=== PATIENT | female | born 1975 | race African-American/Black ===

== ENCOUNTER 2016-10-21 03:20 | Emergency (ER) | payer OTHER ==
[~2016-10-21] VITALS: Ht 165.1 cm; Wt 95.0 kg
[~2016-10-21 03:20] MED LIST: PHEN100 PO
[2016-10-21] MEDS ORDERED: PHEN100C PO (03:25)
[2016-10-21 03:26] VITALS: BP 126/73; PULSE 77; RESP 18; TEMP 97.9
[2016-10-21 03:33] VITALS: BP 126/73; PULSE 84; RESP 20; O2SAT 100
[2016-10-21] MEDS ORDERED: SODIUM CHLORIDE 0.9% FLUSH 5 ML FLUSH IVF PRN (03:45)
[2016-10-21 04:37] LABS: ALKALINE PHOSPHATASE 85 U/L (45-117); TOTAL BILIRUBIN ADULT 0.3 MG/DL (0.2-1.0)
[2016-10-21 04:39] LABS: ALT (GPT) 51 U/L (10-53); ANION GAP 8 MEQ/L (5-15); AST (GOT) 42 U/L (15-37); BICARBONATE 25.4 MEQ/L (21.0-32.0); BLOOD UREA NITROGEN 8 MG/DL (7-18); CHLORIDE 103 MEQ/L (98-107); GLOMERULAR FILTRATION RATE 88 ML/MIN (>89); POTASSIUM 4.7 MEQ/L (3.5-5.1); SODIUM (NA) 136 MEQ/L (136-145)
[2016-10-21] MEDS ORDERED: LORazepam 2 MG/ML VIAL ONE (04:51)
[2016-10-21] MEDS ORDERED: LORazepam 2 MG/ML VIAL IVS ONE (04:52)
[2016-10-21 04:59] VITALS: BP 133/62; PULSE 100; RESP 16; O2SAT 100
[2016-10-21 05:17] VITALS: BP 156/98; PULSE 98; RESP 16; O2SAT 96
[2016-10-21] MEDS ORDERED: LORazepam 2 MG/ML VIAL IV ONE (06:00)
--- NOTE | 2016-10-21 06:02 | PD ---
HPI Chief Complaint: Seizure Time Seen by Provider: 03:39 Travel History International Travel<30 days: No Contact w/Intl Traveler<30days: No Traveled to known affect area: No History of Present Illness HPI Patient is a 41-year-old female with a history of seizure disorder presents emergency department for evaluation of recurrent seizure. On arrival patient is fairly disgruntled and states that she wants to go home. When asked what happened she states that think I had a seizure again. She does not remember the exact events that led up to her being transported by EMS. Patient states she takes phenytoin and has been faithful to her medication regimen. She states she has not had a seizure since last month. She states occasionally she does have seizures to a time. She follows with patient assistance clinic here. No fevers no chest pain no headache. PFSH Past Medical History Arthritis: No Asthma: No Autoimmune Disease: No Blood Disorders: No Anxiety: No Depression: No Heart Rhythm Problems: No Cancer: No Cardiovascular Problems: No High Cholesterol: No Chemotherapy: No Chest Pain: No Congestive Heart Failure: No COPD: No Cerebrovascular Accident: No Diabetes: No Diminished Hearing: No Endocrine: No GERD: No Glaucoma: No Genitourinary: No Headaches: No Hepatitis: No Hiatal Hernia: No Hypertension: No Immune Disorder: No Kidney Stones: No Musculoskeletal: No Neurologic: Yes Psychiatric: No Reproductive: No Respiratory: No Migraines: No Myocardial Infarction: No Radiation Therapy: No Renal Failure: No Seizures: Yes Sickle Cell Disease: No Sleep Apnea: No Thyroid Disease: No Ulcer: No PNEUMOCCOCAL Vaccine (Year): 2 ?: Not : 2 Para: 2 Miscarriage: 0 : 0 Tubal Ligation: Yes Past Surgical History Abdominal Surgery: No AICD: No Appendectomy: No Arteriovenous Shunt: No Cardiac Surgery: No Cholecystectomy: No Ear Surgery: No Endocrine Surgery: No Eye Surgery: No Genitourinary Surgery: No Gynecologic Surgery: Yes ( TUBAL LIGATION) Hysterectomy: Yes Insulin Pump: No Joint Replacement: No Neurologic Surgery: No Oral Surgery: No Pacemaker: No Thoracic Surgery: No Other Surgery: Yes Social History Alcohol Use: No Tobacco Use: No Substance Use: No Allergies-Medications (Allergen,Severity, Reaction): Coded Allergies: No Known Allergies (Verified , 10/21/16) Reported Meds & Prescriptions Reported Meds & Active Scripts Active Reported Phenytoin Extended 100 Mg Cap 300 Mg PO TID Review of Systems Except as stated in HPI: all other systems reviewed are Neg Physical Exam Narrative GENERAL: Well-developed well-nourished in no apparent distress. SKIN: Warm and dry. HEAD: Atraumatic. Normocephalic. EYES: Pupils equal and round. No scleral icterus. No injection or drainage. ENT: No nasal bleeding or discharge. Mucous membranes pink and moist. No tongue laceration. NECK: Trachea midline. No JVD. CARDIOVASCULAR: Regular rate and rhythm. No murmur appreciated. RESPIRATORY: No accessory muscle use. Clear to auscultation. Breath sounds equal bilaterally. GASTROINTESTINAL: Abdomen soft, non-tender, nondistended. Hepatic and splenic margins not palpable. MUSCULOSKELETAL: No obvious deformities. No clubbing. No cyanosis. No edema. NEUROLOGICAL: Awake and alert. Cranial nerves II through XII are grossly intact nonfocal, 5 out of 5 strength in all 4 extremities. PSYCHIATRIC: Appropriate mood and affect; insight and judgment normal. Data Data Last Documented VS Vital Signs Date Time Temp Pulse Resp B/P Pulse Ox O2 Delivery O2 Flow Rate FiO2 10/21/16 06:14 80 18 140/67 100 Nasal Cannula 3 10/21/16 03:26 97.9 Orders Basic Metabolic Panel (Bmp) (10/21/16 03:39) Phenytoin (Dilantin) (10/21/16 03:39) Blood Glucose (10/21/16 03:39) Ecg Monitoring (10/21/16 03:39) Iv Access Insert/Monitor (10/21/16 03:39) Oximetry (10/21/16 03:39) Comprehensive Metabolic Panel (10/21/16 03:39) Sodium Chloride 0.9% Flush (Ns Flush) (10/21/16 03:45) Lorazepam Inj (Ativan Inj) (10/21/16 04:51) Lorazepam Inj (Ativan Inj) (10/21/16 04:52) Labs Laboratory Tests Test 10/21/16 03:56 Sodium Level 136 MEQ/L Potassium Level 4.7 MEQ/L Chloride Level 103 MEQ/L Carbon Dioxide Level 25.4 MEQ/L Anion Gap 8 MEQ/L Blood Urea Nitrogen 8 MG/DL Creatinine 0.85 MG/DL Estimat Glomerular Filtration 88 ML/MIN Rate Random Glucose 82 MG/DL Calcium Level 8.3 MG/DL Total Bilirubin 0.3 MG/DL Aspartate Amino Transf 42 U/L (AST/SGOT) Alanine Aminotransferase 51 U/L (ALT/SGPT) Alkaline Phosphatase 85 U/L Total Protein 7.7 GM/DL Albumin 3.4 GM/DL Phenytoin (Dilantin) Level 13.8 MCG/ML MDM Medical Decision Making Medical Screen Exam Complete: Yes Emergency Medical Condition: Yes Differential Diagnosis Recurrent seizure, electrolyte abnormality, medication subtherapeutic level. Narrative Course Patient was roomed in emergency department, she appears well on arrival. While waiting for her labs returned patient did have a generalized tonic-clonic seizure lasting only for about 45 seconds. She was given Ativan 1 mg IV. Dilantin level returned subtherapeutic. The rest are her lab work is reassuring. Discussed with the patient that at this point she is not in status epilepticus and her levels are therapeutic. Patient states is not out of the ordinary for her to have an additional seizure. Discussed with her need follow- up with her primary care physician and consider a neurology consult and I have placed a referral. Patient is agreeable and would like to go home. Discussed first aid for seizures and returned ED criteria. Diagnosis Primary Impression: Recurrent seizures Referrals: Ramiro Vora MD Disposition: 01 DISCHARGE HOME Condition: Stable gJ Mason MD Oct 21, 2016 06:02
[2016-10-21 06:14] VITALS: BP 140/67
[2016-11-28] MEDS ORDERED: PHEN100C PO (13:01)
[2017-01-14] MEDS ORDERED: PHEN100C PO (10:05)
[2017-02-14] MEDS ORDERED: HYDR12.56 PO (11:18)
== END 2016-10-21 06:44 | disposition home or self-care (01) ==
LOC: NEPE 03:20
DX: G40.909 Epilepsy, unspecified, not intractable, without status epilepticus (principal)
CPT/HCPCS: 80053; 80185; 96374; 99284; J2060

== ENCOUNTER 2016-12-19 13:25 | Emergency (ER) | payer OTHER ==
[~2016-12-19] VITALS: Ht 165.1 cm; Wt 80.0 kg
[~2016-12-19 13:25] MED LIST changes: -PHEN100 PO; +PHEN100C PO
[2016-12-19 13:28] VITALS: BP 153/92; PULSE 80; RESP 22; TEMP 98.5; O2SAT 100
[2016-12-19 13:35] VITALS: RESP 16; O2SAT 98
[2016-12-19] MEDS ORDERED: SODIUM CHLORIDE 0.9% FLUSH 10 ML FLUSH IVF PRN (13:45)
[2016-12-19] MEDS ORDERED: LORazepam 2 MG/ML VIAL IV PUSH ONE (13:45)
--- NOTE | 2016-12-19 13:50 | PD ---
HPI Chief Complaint: Seizure Time Seen by Provider: 13:46 Travel History International Travel<30 days: No Contact w/Intl Traveler<30days: No Traveled to known affect area: No History of Present Illness HPI 41-year-old female with a history of seizure disorder presents to the ED for evaluation of possible seizure. Per patient she possibly had a seizure about an hour ago. He shouldn't exam appears to be very anxious and distraught. Per patient she's had a history of seizures since 2007. She's been here multiple times for seizures in the past. Per patient she unfortunately does not have follow-up and she states that she's been out of her medication. Patient comes here with a ball up and he tilling which per patient she's been out of and she did not take any of the medications today. She denies any headache. No head injury. Per patient she has grand mal seizures. Patient was seen here at the beginning of the year and was seen for something similar. Patient was discharged with instructions to follow with neurology as well as PCP. Patient unclear if she has been following but it appears that she has not. She denies any other symptom. She does not really remember what happened as she usually lost his consciousness when she has a seizure. Nobody was there to see her. She denies any other medical problems. PFSH Past Medical History Arthritis: No Asthma: No Autoimmune Disease: No Blood Disorders: No Anxiety: No Depression: No Heart Rhythm Problems: No Cancer: No Cardiovascular Problems: No High Cholesterol: No Chemotherapy: No Chest Pain: No Congestive Heart Failure: No COPD: No Cerebrovascular Accident: No Diabetes: No Diminished Hearing: No Endocrine: No GERD: No Glaucoma: No Genitourinary: No Headaches: No Hepatitis: No Hiatal Hernia: No Hypertension: No Immune Disorder: No Kidney Stones: No Musculoskeletal: No Neurologic: Yes Psychiatric: No Reproductive: No Respiratory: No Migraines: No Myocardial Infarction: No Radiation Therapy: No Renal Failure: No Seizures: Yes Sickle Cell Disease: No Sleep Apnea: No Thyroid Disease: No Ulcer: No PNEUMOCCOCAL Vaccine (Year): 2 LMP: 12/19/16 : 2 Para: 2 Miscarriage: 0 : 0 Tubal Ligation: Yes Past Surgical History Abdominal Surgery: No AICD: No Appendectomy: No Arteriovenous Shunt: No Cardiac Surgery: No Cholecystectomy: No Ear Surgery: No Endocrine Surgery: No Eye Surgery: No Genitourinary Surgery: No Gynecologic Surgery: Yes ( TUBAL LIGATION) Hysterectomy: Yes Insulin Pump: No Joint Replacement: No Neurologic Surgery: No Oral Surgery: No Pacemaker: No Thoracic Surgery: No Other Surgery: Yes Social History Alcohol Use: No Tobacco Use: No Substance Use: No Allergies-Medications (Allergen,Severity, Reaction): Coded Allergies: No Known Allergies (Verified , 12/19/16) Reported Meds & Prescriptions Reported Meds & Active Scripts Active Phenytoin Extended 100 Mg Cap 300 Mg PO TID Review of Systems Except as stated in HPI: all other systems reviewed are Neg Physical Exam Narrative GENERAL: SKIN: Warm and dry. HEAD: Atraumatic. Normocephalic. EYES: Pupils equal and round. No scleral icterus. No injection or drainage. ENT: No nasal bleeding or discharge. Mucous membranes pink and moist. Tongue is midline. No uvula deviation. NECK: Trachea midline. No JVD. CARDIOVASCULAR: Regular rate and rhythm. No murmurs, S3, S4. RESPIRATORY: No accessory muscle use. Clear to auscultation. Breath sounds equal bilaterally. GASTROINTESTINAL: Abdomen soft, non-tender, nondistended. Hepatic and splenic margins not palpable. MUSCULOSKELETAL: Extremities without clubbing, cyanosis, or edema. No obvious deformities. Full range of motion of the upper and lower extremities bilaterally. 2+ pulses bilaterally. No lumbar, thoracic, cervical spine tenderness to palpation. NEUROLOGICAL: Awake and alert. No obvious cranial nerve deficits. Motor grossly within normal limits. Five out of 5 muscle strength in the arms and legs. Normal speech. PSYCHIATRIC: Appropriate mood and affect; insight and judgment normal. Data Data Last Documented VS Vital Signs Date Time Temp Pulse Resp B/P Pulse Ox O2 Delivery O2 Flow Rate FiO2 12/19/16 13:28 98.5 80 22 153/92 100 Room Air Orders Complete Blood Count With Diff (12/19/16 13:34) Phenytoin (Dilantin) (12/19/16 13:34) Electrocardiogram (12/19/16 ) Blood Glucose (12/19/16 13:34) Ecg Monitoring (12/19/16 13:34) Iv Access Insert/Monitor (12/19/16 13:34) Oximetry (12/19/16 13:34) Comprehensive Metabolic Panel (12/19/16 13:34) Sodium Chloride 0.9% Flush (Ns Flush) (12/19/16 13:45) Urinalysis - C+S If Indicated (12/19/16 13:34) Ed Urine Pregnancytest Poc (12/19/16 13:34) Lorazepam Inj (Ativan Inj) (12/19/16 13:45) [facility] Medical Decision Making Medical Screen Exam Complete: Yes Emergency Medical Condition: Yes Medical Record Reviewed: Yes Differential Diagnosis Seizure versus epilepsy versus recurrent seizures Narrative Course 41-year-old female that presents to the ED for evaluation of seizures. Patient was properly examined and was found to have signs and symptoms consistent appears to be seizure. No sign of acute disease. At this time patient appears to be postictal. At this time I recommend labs and they to the level as well as IV Ativan to help with her anxiety. Labs ordered and showed Diagnosis Primary Impression: Seizure disorder Ranjith Rivas Dec 19, 2016 13:50
[2016-12-19 14:13] LABS: BASOPHIL % 0.6 % (0.0-2.0); EOSINOPHIL # 0.3 TH/MM3 (0-0.4); EOSINOPHIL % 6.1 % (0.0-4.0); HEMATOCRIT 39.9 % (35.0-46.0); HEMO FLAGS DIFF FINAL; LYMPH % 39.1 % (9.0-44.0); LYMPHOCYTE # 1.7 TH/MM3 (1.0-4.8); MEAN CELL VOLUME 90.3 FL (80.0-100.0); MEAN CORPUSCULAR HEMOGLOBIN 29.9 PG (27.0-34.0); MEAN CORPUSCULAR HGB CONC 33.2 % (32.0-36.0); MONO % 6.7 % (0.0-8.0); NEUT % 47.5 % (16.0-70.0); PLATELET COUNT 222 TH/MM3 (150-450); RED BLOOD COUNT 4.42 MIL/MM3 (4.00-5.30); RED CELL DISTRIBUTION WIDTH 15.2 % (11.6-17.2); WHITE BLOOD COUNT 4.3 TH/MM3 (4.0-11.0)
[2016-12-19 14:37] LABS: ALKALINE PHOSPHATASE 65 U/L (45-117); ALT (GPT) 42 U/L (10-53); ANION GAP 5 MEQ/L (5-15); AST (GOT) 41 U/L (15-37); BICARBONATE 26.6 MEQ/L (21.0-32.0); BLOOD UREA NITROGEN 12 MG/DL (7-18); CHLORIDE 105 MEQ/L (98-107); GLOMERULAR FILTRATION RATE 98 ML/MIN (>89); POTASSIUM 4.9 MEQ/L (3.5-5.1); SODIUM (NA) 137 MEQ/L (136-145); TOTAL BILIRUBIN ADULT 0.3 MG/DL (0.2-1.0)
[2016-12-19] MEDS ORDERED: PHEN100C PO (14:56)
[2016-12-19] MEDS ORDERED: PHENYTOIN INJ 1,000 MG in SODIUM CHLORIDE 0.9% INJ 100 ML IV ONE (15:00)
[2016-12-19 15:34] LABS: BLOOD, URINE SMALL (NEG); COMMENT (UR) CULT NOT INDICATED; CULTURE IF INDICATED CULT NOT INDICATED; GLUCOSE,URINE NEG (NEG); KETONE, URINE NEG (NEG); NITRITE,URINE NEG (NEG); PH, URINE 6.5 (5.0-8.5); SQUAMOUS EPITHELIAL CELL URINE 1 /hpf (0-5); URINE COLOR LIGHT-YELLOW (YELLW/STRAW)
--- NOTE | 2016-12-19 18:47 | PD ---
Physical Exam Date Seen by Provider: Dec 19, 2016 Time Seen by Provider: 15:30 Narrative I, Dr. Rosario, have reviewed the advance practice practitioner's documentation and am in agreement, met with the patient face to face, made the diagnosis, and the medical decision making was done by me. *My assessment and Findings: Patient seen and evaluated with PA, please see PA and have referred her details. Has history of seizures, ran out metastases, status post seizure. She was initially post ictal on initial evaluation the ER but became more lucid as we observed her in the ER until awake and oriented. Vital signs are stable in the ER. She has no focal neurological deficits on evaluation. Cardiac and pulmonary exam was unremarkable. Lab work shows no significant metabolic issues. Her Dilantin level was low. Neurological abnormalities were identified. Patient was given a loading dose of Dilantin and given further refills of her seizure medications. Follow-up with primary care physician and neurologist. Return for any new issues as needed. The plan was discussed with the patient and she states understanding. Laboratory Tests Test 12/19/16 12/19/16 13:50 15:00 Eosinophils (%) (Auto) 6.1 % (0.0-4.0) Calcium Level 8.4 MG/DL (8.5-10.1) Aspartate Amino Transf 41 U/L (15-37) (AST/SGOT) Albumin 3.3 GM/DL (3.4-5.0) Phenytoin (Dilantin) Level 5.0 MCG/ML (10.0-20.0) Urine Occult Blood SMALL (NEG) Urine RBC 4 /hpf (0-3) Data Data Last Documented VS Vital Signs Date Time Temp Pulse Resp B/P Pulse Ox O2 Delivery O2 Flow Rate FiO2 12/19/16 13:35 16 98 Room Air 12/19/16 13:28 98.5 80 153/92 Orders Complete Blood Count With Diff (12/19/16 13:34) Phenytoin (Dilantin) (12/19/16 13:34) Electrocardiogram (12/19/16 ) Blood Glucose (12/19/16 13:34) Ecg Monitoring (12/19/16 13:34) Iv Access Insert/Monitor (12/19/16 13:34) Oximetry (12/19/16 13:34) Comprehensive Metabolic Panel (12/19/16 13:34) Sodium Chloride 0.9% Flush (Ns Flush) (12/19/16 13:45) Urinalysis - C+S If Indicated (12/19/16 13:34) Ed Urine Pregnancytest Poc (12/19/16 13:34) Lorazepam Inj (Ativan Inj) (12/19/16 13:45) Phenytoin Inj (Dilantin Inj) (12/19/16 15:00) Mandatory Outpatient Referral (12/19/16 15:01) Labs Laboratory Tests Test 12/19/16 12/19/16 13:50 15:00 White Blood Count 4.3 TH/MM3 Red Blood Count 4.42 MIL/MM3 Hemoglobin 13.2 GM/DL Hematocrit 39.9 % Mean Corpuscular Volume 90.3 FL Mean Corpuscular Hemoglobin 29.9 PG Mean Corpuscular Hemoglobin 33.2 % Concent Red Cell Distribution Width 15.2 % Platelet Count 222 TH/MM3 Mean Platelet Volume 8.8 FL Neutrophils (%) (Auto) 47.5 % Lymphocytes (%) (Auto) 39.1 % Monocytes (%) (Auto) 6.7 % Eosinophils (%) (Auto) 6.1 % Basophils (%) (Auto) 0.6 % Neutrophils # (Auto) 2.0 TH/MM3 Lymphocytes # (Auto) 1.7 TH/MM3 Monocytes # (Auto) 0.3 TH/MM3 Eosinophils # (Auto) 0.3 TH/MM3 Basophils # (Auto) 0.0 TH/MM3 CBC Comment DIFF FINAL Differential Comment Sodium Level 137 MEQ/L Potassium Level 4.9 MEQ/L Chloride Level 105 MEQ/L Carbon Dioxide Level 26.6 MEQ/L Anion Gap 5 MEQ/L Blood Urea Nitrogen 12 MG/DL Creatinine 0.78 MG/DL Estimat Glomerular Filtration 98 ML/MIN Rate Random Glucose 80 MG/DL Calcium Level 8.4 MG/DL Total Bilirubin 0.3 MG/DL Aspartate Amino Transf 41 U/L (AST/SGOT) Alanine Aminotransferase 42 U/L (ALT/SGPT) Alkaline Phosphatase 65 U/L Total Protein 7.3 GM/DL Albumin 3.3 GM/DL Phenytoin (Dilantin) Level 5.0 MCG/ML Urine Color LIGHT-YELLOW Urine Turbidity CLEAR Urine pH 6.5 Urine Specific [place] 1.014 Urine Protein NEG mg/dL Urine Glucose (UA) NEG mg/dL Urine Ketones NEG mg/dL Urine Occult Blood SMALL Urine Nitrite NEG Urine Bilirubin NEG Urine Urobilinogen LESS THAN 2.0 MG/DL Urine Leukocyte Esterase NEG Urine RBC 4 /hpf Urine WBC 2 /hpf Urine Squamous Epithelial 1 /hpf Cells Microscopic Urinalysis Comment CULT NOT INDICATED MDM Medical Record Reviewed: Yes Supervised Visit with ROOPA: Yes Diagnosis Primary Impression: Seizure disorder Referrals: India Jameson MD (PCP) Patient Instructions: General Instructions, Narcotic given in the ED, Recurrent Seizures in Adults (ED) Departure Forms: Tests/Procedures Scripts Phenytoin Extended 100 Mg Eps498 Mg PO TID #270 CAP Ref 0 Prov:Roel Rosario MD 12/19/16 Disposition: 01 DISCHARGE HOME Condition: Stable Roel Rosario MD Dec 19, 2016 18:47
--- NOTE | 2016-12-21 07:28 | EKG ---
Date Performed: 12/19/2016 Time Performed: 13:51:04 PTAGE: 41 years EKG: SINUS BRADYCARDIA WITH SINUS ARRHYTHMIA BORDERLINE ECG Compared to PREVIOUS TRACING , the sinus rate has slowed. PREVIOUS TRACIN12/05/2014 10.21 DOCTOR: Cruz Gibbons Interpretating Date/Time 12/21/2016 07:26:58
[2017-01-14] MEDS ORDERED: PHEN100C PO (10:05)
[2017-02-14] MEDS ORDERED: HYDR12.56 PO (11:18)
== END 2016-12-19 15:08 | disposition home or self-care (01) ==
LOC: NEPE 13:25
DX: G40.409 Other generalized epilepsy and epileptic syndromes, not intractable, without status epilepticus (principal); R00.1 Bradycardia, unspecified; Z91.19 Patient's noncompliance with other medical treatment and regimen
CPT/HCPCS: 80053; 80185; 81001; 85025; 93005; 96374; 99284; J1165; J2060

== ENCOUNTER → 2017-01-14 | Outpatient (CLI) | payer OTHER ==
[~2017-01-14] MED LIST changes: +HYDR12.56 PO
[2017-01-14 12:05] LABS: AUTOMATED NEUTROPHIL # 2.4 TH/MM3 (1.8-7.7); BASOPHIL % 0.8 % (0.0-2.0); EOSINOPHIL # 0.3 TH/MM3 (0-0.4); EOSINOPHIL % 5.9 % (0.0-4.0); HEMATOCRIT 41.6 % (35.0-46.0); HEMO FLAGS DIFF FINAL; LYMPH % 34.6 % (9.0-44.0); LYMPHOCYTE # 1.6 TH/MM3 (1.0-4.8); MEAN CELL VOLUME 90.6 FL (80.0-100.0); MEAN CORPUSCULAR HEMOGLOBIN 29.5 PG (27.0-34.0); MEAN CORPUSCULAR HGB CONC 32.6 % (32.0-36.0); MONO % 6.9 % (0.0-8.0); NEUT % 51.8 % (16.0-70.0); PLATELET COUNT 220 TH/MM3 (150-450); RED CELL DISTRIBUTION WIDTH 15.1 % (11.6-17.2); WHITE BLOOD COUNT 4.6 TH/MM3 (4.0-11.0)
[2017-01-14 12:43] LABS: ALKALINE PHOSPHATASE 78 U/L (45-117); ALT (GPT) 41 U/L (10-53); ANION GAP 8 MEQ/L (5-15); AST (GOT) 34 U/L (15-37); BICARBONATE 26.3 MEQ/L (21.0-32.0); BLOOD UREA NITROGEN 9 MG/DL (7-18); CHLORIDE 103 MEQ/L (98-107); GLOMERULAR FILTRATION RATE 104 ML/MIN (>89); GLUCOSE,FASTING 81 MG/DL (74-99); HDL CHOLESTEROL 84.4 MG/DL (40.0-60.0); LDL CHOLESTEROL 114 MG/DL (0-99); POTASSIUM 3.8 MEQ/L (3.5-5.1); SODIUM (NA) 137 MEQ/L (136-145); TOTAL BILIRUBIN ADULT 0.2 MG/DL (0.2-1.0)
== END ==
LOC: CLAB 11:16
PROVIDERS: ATTEND Family Medicine
DX: F41.9 Anxiety disorder, unspecified (principal); G47.00 Insomnia, unspecified; G40.909 Epilepsy, unspecified, not intractable, without status epilepticus; F17.200 Nicotine dependence, unspecified, uncomplicated
CPT/HCPCS: 36415; 80053; 80061; 84443; 85025

== ENCOUNTER → 2017-04-23 | Day surgery (SDC) | payer OTHER ==
[~2017-04-23] VITALS: Ht 165.1 cm; Wt 95.3 kg
[~2017-04-23] MED LIST changes: +*ENALAPRILAT 1.25 MG/ML VIAL PERIprocedural Use ONLY ONE; +ACETAMINOPHEN 1000 MG/100 ML VIAL IV ONE; +BUPIVACAINE/EPINEPHRINE 0.25% PF 10 ML VIAL INFIL ONE; +CHLORHEXIDINE GLUCONATE 2 % 1 PACK (2 CLOTHS) TOPICAL PRN; +DEXAMETHASONE SOD PHOS 4 MG/ML VIAL ONE; +DICLOFENAC SODIUM 37.5 MG/ML VIAL IV PUSH ONE; +DO NOT ADM ANY ANTICOAGULANT DRUGS PRN; +FAMOTIDINE 20 MG/2 ML VIAL ONE; -HYDR12.56 PO; +INSULIN HUMAN REGULAR 1,000 UNITS/10 ML VIAL SQ PRN; +LACTATED RINGER'S 1000 ML IV PRN; +METOPROLOL TARTRATE 25 MG TAB PO PRN; +MIDAZOLAM HCL 2 MG/2 ML VIAL ONE; +ONDANSETRON HCL 4 MG/2 ML VIAL IV PUSH ONE; +PERC5TAB12 PO; +POVIDONE IODINE 5% (ANTISEPSIS KIT) 4 APPLICATIONS EACH NARE PRN; +PROPOFOL 200 MG/20 ML AMP IV ONE; +SODIUM CHLORID 0.9% 500 ML IV PRN; +fentaNYL CITRATE 250 MCG/5 ML AMP ONE
[2017-04-23 08:03] VITALS: BP 138/74; PULSE 67; RESP 20; TEMP 98.5; O2SAT 98
[2017-04-23 08:41] LABS: AUTOMATED NEUTROPHIL # 3.3 TH/MM3 (1.8-7.7); BASOPHIL % 0.8 % (0.0-2.0); EOSINOPHIL # 0.3 TH/MM3 (0-0.4); EOSINOPHIL % 4.8 % (0.0-4.0); HEMATOCRIT 40.6 % (35.0-46.0); HEMO FLAGS DIFF FINAL; LYMPH % 25.4 % (9.0-44.0); LYMPHOCYTE # 1.4 TH/MM3 (1.0-4.8); MEAN CELL VOLUME 91.3 FL (80.0-100.0); MEAN CORPUSCULAR HEMOGLOBIN 30.2 PG (27.0-34.0); MEAN CORPUSCULAR HGB CONC 33.1 % (32.0-36.0); MONO % 7.5 % (0.0-8.0); NEUT % 61.5 % (16.0-70.0); PLATELET COUNT 254 TH/MM3 (150-450); RED BLOOD COUNT 4.45 MIL/MM3 (4.00-5.30); RED CELL DISTRIBUTION WIDTH 15.8 % (11.6-17.2); WHITE BLOOD COUNT 5.4 TH/MM3 (4.0-11.0)
--- NOTE | 2017-04-23 12:08 | PD.OP ---
Operative Report Date of Surgery: Apr 23, 2017 Preoperative Diagnosis: (1) Epidermoid cyst of labia majora Postoperative Diagnosis: (1) Epidermoid cyst of labia majora Procedure: left labial cyst excision Anesthesia: general Surgeon: Jey Sousa Assembly Cleaner(s): Jey Dolan MD Apr 23, 2017 12:08
--- NOTE | 2017-04-23 12:11 | HHI.DCPOC ---
Discharge Care Plan Diagnosis: (1) Epidermoid cyst of labia majora Report Symptoms to Your Doctor -Temperature above 100.5 degrees -Redness, of incision or excessive or foul smelling drainage -Unusual pain or calf pain -Increased vaginal bleeding -Painful or difficulty urinating -Feelings of extreme sadness or anxiety after 2 weeks Goals to Promote Your Health * To prevent worsening of your condition and complications * To maintain your health at the optimal level Directions to Meet Your Goals Take your medications as prescribed Follow your dietary instruction Follow activity as directed Ensure plenty of rest for recovery Drink fluids for hydration Keep your appointments as scheduled Take your immunizations and boosters as scheduled If your symptoms worsen call your PCP, if no PCP go to Urgent Care Center or Emergency Room Smoking is Dangerous to Your Health. Avoid second hand smoke Call the 24-hour crisis hotline for domestic abuse at Jey Sousa MD Apr 23, 2017 12:11
[2017-04-23 14:00] VITALS: BP 149/87; PULSE 60; RESP 18; TEMP 99; O2SAT 100
--- NOTE | 2017-04-23 23:03 | MP ---
cc: QUAN SOUSA DATE OF SURGERY 04/23/17 PROCEDURE Excision of left labial cyst. The patient had a 10 cm cyst. PREOPERATIVE DIAGNOSIS Left labial cyst. POSTOPERATIVE DIAGNOSIS Left labial cyst. SURGEON Dr. Quan Sousa ESTIMATED BLOOD LOSS 75 mL COMPLICATIONS None FINDINGS Large epidermal inclusion cyst. PROCEDURE IN DETAIL After the patient was placed under general anesthesia, time-out was taken. The patient was placed candy-cane stirrups. Abdomen, perineum, vagina prepped, draped in normal sterile fashion. Bladder was drained prior to entering the operating room. The labial cyst was examined. After evaluation of labia we make an elliptical incision around the entire base of the labial cyst and using cautery we entered the cyst. Upon entering the cyst, we encountered thick epidermal occlusion cyst material. This was cleared out of the way. There was one large cyst and two small cysts. We continued to dissect this out and removed it from the labia. The defect was then closed with deep stitches of 3-0 Vicryl and a 2-0 chromic to the skin. The patient tolerated the procedure well. She was hemostatic at the end of the case. The patient was taken to recovery room in stable condition. We used about 5 mL of injection for some analgesia when the patient awakened. MD MARLEY Santana/ /12:14 PM /10:48 PM
== END | disposition home or self-care (01) ==
LOC: HSDC 06:59
PROVIDERS: ATTEND Obstetrics & Gynecology
DX: L72.0 Epidermal cyst (principal); N90.7 Vulvar cyst; G40.909 Epilepsy, unspecified, not intractable, without status epilepticus; Z79.899 Other long term (current) drug therapy
CPT/HCPCS: 00300; 11426; 12044; 85025; 86850; 86900; 86901; 88304; J0131; J1100; J1130; J2250; J2405; J3010; 88305

== ENCOUNTER → 2017-06-14 | Outpatient (CLI) | payer OTHER ==
[~2017-06-14] MED LIST changes: -*ENALAPRILAT 1.25 MG/ML VIAL PERIprocedural Use ONLY ONE; -ACETAMINOPHEN 1000 MG/100 ML VIAL IV ONE; -BUPIVACAINE/EPINEPHRINE 0.25% PF 10 ML VIAL INFIL ONE; -CHLORHEXIDINE GLUCONATE 2 % 1 PACK (2 CLOTHS) TOPICAL PRN; -DEXAMETHASONE SOD PHOS 4 MG/ML VIAL ONE; -DICLOFENAC SODIUM 37.5 MG/ML VIAL IV PUSH ONE; -DO NOT ADM ANY ANTICOAGULANT DRUGS PRN; -FAMOTIDINE 20 MG/2 ML VIAL ONE; -INSULIN HUMAN REGULAR 1,000 UNITS/10 ML VIAL SQ PRN; -LACTATED RINGER'S 1000 ML IV PRN; -METOPROLOL TARTRATE 25 MG TAB PO PRN; -MIDAZOLAM HCL 2 MG/2 ML VIAL ONE; -ONDANSETRON HCL 4 MG/2 ML VIAL IV PUSH ONE; -POVIDONE IODINE 5% (ANTISEPSIS KIT) 4 APPLICATIONS EACH NARE PRN; -PROPOFOL 200 MG/20 ML AMP IV ONE; -SODIUM CHLORID 0.9% 500 ML IV PRN; -fentaNYL CITRATE 250 MCG/5 ML AMP ONE
[2017-06-14 11:06] LABS: BLOOD, URINE SMALL (NEG); GLUCOSE,URINE NEG (NEG); KETONE, URINE NEG (NEG); NITRITE,URINE NEG (NEG); SQUAMOUS EPITHELIAL CELL URINE 1 /hpf (0-5); URINE COLOR YELLOW (YELLW/STRAW)
== END ==
LOC: CLAB 10:41
PROVIDERS: ATTEND Obstetrics & Gynecology
DX: N39.0 Urinary tract infection, site not specified (principal)
CPT/HCPCS: 81001